=== PATIENT | female | born 1955 | race Caucasian/White ===

== ENCOUNTER → 2016-09-25 | Outpatient (CLI) | payer BC | LOC: RAD 09:46 | PROVIDERS: ATTEND Family Medicine | DX: Z51.81 Encounter for therapeutic drug level monitoring (principal); Z79.01 Long term (current) use of anticoagulants; Z86.711 Personal history of pulmonary embolism | CPT/HCPCS: 93970 ==

== ENCOUNTER → 2017-01-01 | Outpatient (CLI) | payer BC ==
[~2017-01-01] MED LIST: AZIT250T81 PO; CETI-262 PO; DICL100G13 TOP; ENXP40I.4 SC; FLC1T PO; HCT25T PO; HCTZ12.5T PO; LACT1CAP62 PO; LEVO125T PO; LVF500T PO; MELO7.5T PO; METH25VI2 IJ; NF-ESOM40C PO; NF-LISIN40 PO; NF-LT10/20 PO; ONDN4T PO; PRED10TA PO; SULF-221 PO; TIZA2TAB3 PO; TIZAN4T PO; TRIA80CR3 TOP; TRM50T PO; [UNRECOGNIZED DRUG - CODE] PO
== END ==
LOC: LAB 15:07
PROVIDERS: ATTEND Surgery
DX: K43.9 Ventral hernia without obstruction or gangrene (principal)
CPT/HCPCS: 36415; 82565; 84520

== ENCOUNTER → 2017-01-05 | Outpatient (CLI) | payer BC ==
--- NOTE | 2017-01-05 11:27 | Diagnostic Imaging Report ---
PROCEDURE: CT abdomen and pelvis with and without contrast. TECHNIQUE: Precontrast acquisitions were acquired through the abdomen and pelvis. Multiple contiguous axial images were obtained through the abdomen and pelvis after the administration of intravenous contrast. INDICATION: Abdominal pain and swelling. Comparison with 02/26/2016 FINDINGS: The lung bases are clear. The kidneys show a 3 mm calculus lower pole calyx on the left. There is no evidence of renal obstruction. Renal outlines are smooth. Following IV contrast, there is normal enhancement of the abdominal vessels and organs. The liver appears normal. The gallbladder is absent. Bile ducts are not dilated. The pancreas appears normal. The spleen is normal. The adrenal glands are normal. Aorta is atherosclerotic without evidence of aneurysm. There is a large patulous ventral hernia present which contains a large percentage of the small bowel and colon. There is no evidence of incarceration. Anastomotic sutures are seen within the sigmoid colon which actually resides in the hernia. No findings to indicate diverticulitis. The appendix is not visualized though no inflammatory changes are noted. There is no free air or free fluid. No bony abnormalities. IMPRESSION: 1. There is a large patulous ventral hernia with no evidence of incarcerated bowel. 2. Absence of the gallbladder with no evidence of bile duct dilatation. 3. A small nonobstructing calculus noted lower pole calyx of left kidney. Dictated by: Dictated on workstation # [id number]
== END ==
LOC: RAD 07:50
PROVIDERS: ATTEND Surgery
DX: K43.9 Ventral hernia without obstruction or gangrene (principal); Z90.49 Acquired absence of other specified parts of digestive tract; N20.0 Calculus of kidney
CPT/HCPCS: 74178; Q9967